=== PATIENT | female | born 1965 | race Caucasian/White ===

== ENCOUNTER → 2019-12-31 16:16 | Outpatient (CLI) | payer BC, SELFPAY ==
--- NOTE | ~2019-12-31 | XR_ITS ---
XR lumbar spine 2-3V 12/31/2019 16:49 Indication: Lumbar radiculopathy for 6 weeks Procedure: 3 views lumbar spine Comparison: No prior studies for comparison. Findings: Vertebral body heights are maintained. There is disc narrowing at L3-4, L4-5 and L5-S1. The re is moderate facet hypertrophy at these levels with grade 1 degenerative spondylolisthesis at L5-S1 . No fracture or traumatic malalignment. Pedicles intact. Sacral foramen are symmetric. Impression: 1: Moderate lumbar spondylosis primarily involving the facet joints. Reviewed, dictated and finalized at location A. Impression: 1: Moderate lumbar spondylosis primarily involving the facet joints.
== END ==
PROVIDERS: PCP Physician Assistant; Visit Provider Physician Assistant
DX: M47.26 Other spondylosis with radiculopathy, lumbar region (principal)
CPT/HCPCS: 72100

== ENCOUNTER → 2020-01-12 14:58 | Outpatient (CLI) | payer BC, SELFPAY ==
--- NOTE | ~2020-01-12 | XR_ITS ---
XR hip LT min 2V DATE: 01/12/2020 16:02 INDICATION: Pelvic and perineal pain, left hip pain following a fall 6-8 weeks ago TECHNIQUE: AP and lateral views of left hip COMPARISON: None FINDINGS: There is left hip joint space narrowing and spurring consistent with moderately severe oste oarthritis. No fracture, dislocation or bone destruction is evident. The pubic symphysis and sacral iliac joints are normally aligned. IMPRESSION: Moderately severe left hip osteoarthritis Reviewed, dictated and finalized at location B.
--- NOTE | ~2020-01-12 | MR_ITS ---
EXAMINATION: MR lumbar spine wo [facility] EXAM DATE: 01/12/2020 15:52 INDICATION: Low back pain, left hip pain, left leg weakness, limited range of motion. TECHNIQUE: Multi-sequential, multiplanar MR images of the lumbar spine were obtained without contrast . Sagittal T1, T2, T2 fat saturation images. Axial T2 weighted images. There is no prior study for comparison. FINDINGS: The conus medullaris terminates at the L1/2 level and has normal signal intensity and morph ology. There is mild lumbar disc desiccation. The vertebral bodies are aligned in the AP dimension. Vertebral body and disc heights are well-maintained. There are no suspicious marrow signal abnormali ties. Paraspinal soft tissue is unremarkable. Level by level evaluation: T12-L1: Disc does not extend beyond the endplate margin. Facet arthropathy: Mild. Neural foraminal stenosis: No stenosis. Central canal stenosis: No stenosis. L1-L2: Disc does not extend beyond the endplate margin. Facet arthropathy: Mild. Neural foraminal stenosis: No stenosis. Central canal stenosis: No stenosis. L2-L3: Disc does not extend beyond the endplate margin. Facet arthropathy: Mild. Neural foraminal stenosis: No stenosis. Central canal stenosis: No stenosis. L3-L4: There is a minimal diffuse disc bulge. Facet arthropathy: Mild to moderate. Neural foraminal stenosis: No stenosis. Central canal stenosis: No stenosis. L4-L5: There is a mild diffuse disc bulge. Facet arthropathy: Moderate. Neural foraminal stenosis: Mild to moderate bilateral. Central canal stenosis: Mild. L5-S1: There is a mild diffuse disc bulge. Facet arthropathy: Moderate. Neural foraminal stenosis: Mild to moderate left, mild right. Central canal stenosis: No stenosis. IMPRESSION: 1. Moderate lower lumbar arthropathy. Reviewed, dictated and finalized at location A.
== END ==
PROVIDERS: PCP Physician Assistant; Visit Provider Physician Assistant
DX: R10.2 Pelvic and perineal pain (principal); M47.896 Other spondylosis, lumbar region; M16.12 Unilateral primary osteoarthritis, left hip
CPT/HCPCS: 72148; 73502

== ENCOUNTER → 2020-05-12 18:06 | Outpatient (CLI) | payer BC, SELFPAY ==
--- NOTE | ~2020-05-12 | MM_ITS ---
EXAMINATION: MM scrn frieda implant BI w destiny HISTORY: Screening mammogram TECHNIQUE: Craniocaudal and mediolateral oblique 3-D tomosynthesis images with implant displacement a nd synthetic 2-D images were generated. Craniocaudal and mediolateral oblique views of the breasts wi thout implant displacement were obtained using full field digital mammography. CAD analysis was submi tted and interpreted. COMPARISON: 08/07/2015 bilateral implant digital screening mammogram 11/15/2012 diagnostic left mammogram and left breast ultrasound 11/01/2012 bilateral implant digital screening mammogram BREAST PARENCHYMAL COMPOSITION: There are scattered areas of fibroglandular density. FINDINGS: Status post bilateral augmentation mammoplasty. There are scattered bilateral benign calcif ications. There is no evidence of suspicious mass, calcification, or architectural distortion to sugg est malignancy in either breast. There has been no suspicious interval change. IMPRESSION: 1. No mammographic evidence of malignancy. 2. Recommend routine screening mammography in one year. BI-RADS Category 2: Benign finding(s). Reviewed, dictated and finalized at location B. 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
== END ==
PROVIDERS: PCP Physician Assistant; Visit Provider Physician Assistant
DX: Z12.31 Encounter for screening mammogram for malignant neoplasm of breast (principal)
CPT/HCPCS: 77063; 77067

== ENCOUNTER 2022-01-14 08:26 | Outpatient (CLI) | payer BC, SELFPAY ==
--- NOTE | ~2022-01-14 | MM_ITS ---
EXAMINATION: MM scrn frieda implant BI w destiny HISTORY: Screening mammogram TECHNIQUE: Craniocaudal and mediolateral oblique 3-D tomosynthesis images with implant displacement a nd synthetic 2-D images were generated. Craniocaudal and mediolateral oblique views of the breasts wi thout implant displacement were obtained using full field digital mammography. CAD analysis was submi tted and interpreted. COMPARISON: 05/12/2020, 08/07/2015 bilateral implant screening mammogram examinations BREAST PARENCHYMAL COMPOSITION: There are scattered areas of fibroglandular density. FINDINGS: Status post bilateral augmentation mammoplasty there is an asymmetric new approximately 3 x 6 mm opacity in the posterior inner right breast on CC projection; diagnostic right mammogram is rec ommended, with ultrasound if required. Otherwise there is no evidence of suspicious mass, calcification, or architectural distortion to sugg est malignancy in either breast. There has been no other suspicious interval change. IMPRESSION: 1. New asymmetric approximately 3 x 6 mm opacity in the posterior inner right breast on implant right CC view 2. Diagnostic right mammogram is recommended, with ultrasound if required BI-RADS Category 0: Incomplete: Needs additional imaging evaluation. Reviewed, dictated and finalized at location A. IMPRESSION: 1. New asymmetric approximately 3 x 6 mm opacity in the posterior inner right b reast on implant right CC view 2. Diagnostic right mammogram is recommended, with ultrasound if required BI-RADS Category 0: Incomplete: Needs additional imaging evaluation.
== END 2022-01-14 08:27 | disposition home or self-care (01) ==
LOC: ANHIMG 08:27
PROVIDERS: PCP Physician Assistant; Visit Provider Physician Assistant
DX: Z12.31 Encounter for screening mammogram for malignant neoplasm of breast (principal); R92.8 Other abnormal and inconclusive findings on diagnostic imaging of breast
CPT/HCPCS: 77063; 77067

== ENCOUNTER 2022-07-14 12:26 | Outpatient (CLI) | payer BC, SELFPAY ==
--- NOTE | ~2022-07-14 | MM_ITS ---
EXAMINATION: MM diagnostic mammo implant RT HISTORY: Right breast asymmetry on screening mammogram TECHNIQUE: Mediolateral spot compression 3-D tomosynthesis images with implant displacement of the ri ght breast were performed and synthetic 2-D images were generated. Craniocaudal with spot compressio n and mediolateral views of the right breast without implant displacement were obtained using full f ield digital mammography. CAD analysis was submitted and interpreted. COMPARISON: 01/14/2022, 05/12/2020, 08/07/2015 BREAST PARENCHYMAL COMPOSITION: There are scattered areas of fibroglandular density. FINDINGS: There is a return to baseline fibroglandular appearance with spot compression of the right breast in the area questioned on screening mammogram. IMPRESSION: 1. No mammographic evidence of malignancy. 2. Recommend routine screening mammography, due in six months. BI-RADS Category 1: Negative Reviewed, dictated and finalized at location A. 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
== END 2022-07-14 12:27 | disposition home or self-care (01) ==
LOC: ANHIMG 12:28
PROVIDERS: PCP Physician Assistant; Visit Provider Physician Assistant
DX: R92.8 Other abnormal and inconclusive findings on diagnostic imaging of breast (principal)
CPT/HCPCS: 77065

== ENCOUNTER → 2022-07-27 08:16 | Outpatient (CLI) | payer BC, SELFPAY ==
--- NOTE | ~2022-07-27 | MR_ITS ---
MRI of the right shoulder Technique: Axial proton-density fat-sat images, coronal proton density fat-sat and T2 fat-sat images, and sagittal T1-weighted and T2 fat-sat images were acquired. Clinical History: Pain Findings: There is moderate AC joint degenerative change. Humeral head is high riding, with narrowing of the acromiohumeral distance. Coracoclavicular, coracoacromial, coracohumeral ligaments appear int act. There are complete, full-thickness tears involving entirety of the supraspinatus and infraspinatus te ndons, which are retracted to the level of the glenohumeral joint. Fluid-filled gap measures approxim ately 3.7 x 4.0 cm in extent. There is probable minimal loss of bulk/fatty atrophy of the infraspinat us muscle belly. Subscapularis tendon is intact, with moderate to severe tendinosis. Tendon of long head of the biceps is intact. No labral tear identified. Inferior humeral ligament is intact. Small glenohumeral joint effusion is present. No muscle edema ev ident. No degenerative change of the glenohumeral joint is identified. There is a probable small gang lion cyst superior/superficial to the AC joint, measuring 1.2 x 0.4 x 0.7 cm in size. Impression: Complete, full-thickness tearing of the supraspinatus and infraspinatus tendons, with large fluid pedro led gap and tendon retraction, as detailed above. Probable mild loss of bulk of the infraspinatus mus lety belly. 1.2 x 0.4 x 0.7 cm ganglion cyst superior/superficial to the AC joint. Moderate AC joint degenerative change. High riding humeral head. Advanced subscapularis tendinosis. Reviewed, dictated and finalized at location . TECHNICIAN Impression: Complete, full-thickness tearing of the supraspinatus and infraspinatus tendons , with large fluid filled gap and tendon retraction, as detailed above. Probabl e mild loss of bulk of the infraspinatus muscle belly. 1.2 x 0.4 x 0.7 cm ganglion cyst superior/superficial to the AC joint. Moderate AC joint degenerative change. High riding humeral head. Advanced subscapularis tendinosis.
== END ==
PROVIDERS: PCP Physician Assistant; Visit Provider Orthopaedic Surgery Hand Surgery
DX: M75.121 Complete rotator cuff tear or rupture of right shoulder, not specified as traumatic (principal)
CPT/HCPCS: 73221

== ENCOUNTER 2023-12-17 12:46 | Emergency (ER) | payer BC, SELFPAY ==
[2023-12-17] VITALS (10 sets, daily range): BP systolic 117–137; BP diastolic 68–73; PULSE 57–95; RESP 13–22; TEMP 36.3–36.5; O2SAT 94–99
--- NOTE | ~2023-12-17 | XR_ITS ---
XR chest 1V portable Ordering provider: Yara Concepcion PA-C History: 58 years Female with . intermittent dyspnea . Comparison: None. FINDINGS: MEDIASTINUM: The cardiac silhouette is not enlarged. LUNGS: No infiltrates, effusions or pneumothorax. OTHER: No free air under the diaphragm. Degenerative changes of the spine. IMPRESSION: No acute cardiopulmonary pathology. Reviewed, dictated and finalized at location A.
--- NOTE | ~2023-12-17 | CT_ITS ---
CT brain wo con Ordering provider: Jennifer Dietz PA-C History: 58 years Female with . migraine, vertigo . Comparison: July 11, 2018 Technique: CT of the head without contrast. Radiation reduction technique utilized. DLP is 605.33 mGy. FINDINGS: BRAIN PARENCHYMA AND CSF SPACES: No midline shift, mass effect or hemorrhage. The brain parenchyma a nd CSF spaces are otherwise normal. Empty sella turcica. VISUALIZED PARANASAL SINUSES: Well aerated. MASTOIDS: Well aerated. BONES: The bones appear intact. SOFT TISSUES: Visualized nasopharynx is normal. Superficial soft tissues are normal. IMPRESSION: No acute intracranial findings. Reviewed, dictated and finalized at location A.
--- NOTE | 2023-12-17 15:20 | ED.DIZZY ---
HPI - Dizziness General Chief Complaint: Dizziness <AALIYAH Galicia Last Filed: 12/17/23 15:32> Stated Complaint: dizzy <AALIYAH Galicia Last Filed: 12/17/23 15:32> Time Seen by Provider: 12/17/23 15:20 <AALIYAH Galicia Last Filed: 12/17/23 15:32> Focused HPI: Patient is a 58 y/o female who presents to the ED with c/o dizziness. Patient reports she has been having constant vertigo since Sunday. Described as room spinning, worse with any movement, turning head, walking. Saw her PCP and was Rx'd meclizine, but denies improvement. Having difficulty ambulating due to the dizziness. Reports nausea, intermittent headache. Denies vomiting, vision changes, numbness or weakness of arm or leg, slurred speech, confusion. GENERAL: Appears older than stated age, thin, and in no acute distress. HEAD: Normocephalic, atraumatic. EYES: PERRL/EOMI, conjunctiva clear. Minimal nystagmus when looking to far right. ENT: TMs clear bilaterally CHEST: Clear to auscultation. ?No respiratory distress. HEART: Regular rate and rhythm.? NEURO: ?Alert and oriented x3. strength 5/5 in upper and lower extremities. Equal high value associate strength bilaterally. No pronator drift. No appreciable focal deficits. Cranial nerves 2 through 12 grossly intact. Patient screened in triage and initial orders placed.? ?Additional care and disposition to be based upon?diagnostic testing and treatment. <AALIYAH Galicia Last Filed: 12/17/23 15:32> Source: patient <AALIYAH Galicia Last Filed: 12/17/23 15:32> Mode of arrival: ambulatory <AALIYAH Galicia Last Filed: 12/17/23 15:32> Limitations: no limitations <AALIYAH Galicia Last Filed: 12/17/23 15:32> History of Present Illness HPI Narrative: 58-year-old female with no reported history of iron deficiency anemia, migraines and chronic tinnitus bilaterally presents to emergency department for vertigo for 6 days. Patient states prior to the onset of symptoms she had a couple of frequent migraines. States she took her Fioricet which did abort the migraines. She then woke up 6 days ago with reported disorientation when she moves her head quickly. States her symptoms progressed throughout the week and she saw her PCP 4 days ago. States she was prescribed meclizine which she took without improvement. This is why she presents today. She states she feels fine when she lays still and does not move her head, however she becomes very dizzy when she moves her head quickly for walks around. She reports difficulty ambulating and states she has to hold on to something while she walks due to the dizziness. She states she has chronic tinnitus bilaterally and was evaluated by ENT and 2016. States she was a is to wear hearing aids but they did not work so she is not continue wearing them. She denies recent head injury or trauma, current headache, vision changes, focal numbness or weakness, chest pain, nausea vomiting, diarrhea, abdominal pain. She does endorse some shortness of breath when doing increased activities which is new for her as well. Denies cough or congestion, fever , ear pain. <Yara Concepcion PA-C - Last Filed: 12/17/23 20:09> Related Data Home Medications: Home Medications Medication Instructions Recorded Confirmed bupropion HCl 300 mg 24 hr tablet, 300 mg PO HS 12/17/23 12/17/23 extended release clonazepam 1 mg tablet 1 mg PO HS 12/17/23 12/17/23 cyclobenzaprine 10 mg tablet 10 mg PO PRN 12/17/23 12/17/23 fluoxetine 40 mg capsule 40 mg PO HS 12/17/23 12/17/23 lemborexant 10 mg tablet (Dayvigo) 10 mg PO HS 12/17/23 12/17/23 levothyroxine 50 mcg tablet 50 mcg PO DAILY 12/17/23 12/17/23 meclizine 25 mg tablet 25 mg PO TID 12/17/23 12/17/23 <Jennifer Dietz PA-C - Last Filed: 12/17/23 15:32> Allergies/Adverse Reactions: Allergies Allergy/AdvReac Type Severity Reaction Status Reggie
--- NOTE | 2023-12-17 15:22 | ECG_ITS ---
Test Date: 2023-12-17 16:29:56 Measurements Intervals [place] Rate: 63 P: 27 PA: 146 QRS: 7 QRSD: 84 T: 26 QT: 429 QTc: 441 Interpretive Statements SINUS RHYTHM No previous ECG available for comparison Electronically Signed On 12-18-2023 13:24:55 CDT by Nawaf Coronado M.D.
[2023-12-17] MEDS: MECLIZINE HCL 25 MG TABLET PO (16:36)
[2023-12-17] MEDS: ONDANSETRON INJ 4 MG/2 ML VIAL IV PUSH (16:38)
[2023-12-17] MEDS: SODIUM CHLORIDE 0.9% IV 1,000 ML 999 ML IV CONT (16:38)
[2023-12-17] MEDS: diazePAM INJ (*CRX) 10 MG/2 ML SYRINGE IV PUSH (16:39)
[2023-12-17 16:45] LABS: Basophils Absolute Auto 0.1 K/mm3 (0.0-0.1); Basophils Percent Auto 0.7 % (0.2-1.2); Eosinophils Absolute Auto 0.5 K/mm3 (0-0.3); Eosinophils Percent Auto 6.6 % (0-4.4); Hematocrit 36.4 % (37.0-47.0); Hemoglobin 12.1 g/dL (12.0-15.0); Immature Granulocyte Absolute 0.02 K/mm3 (0.00-0.031); Immature Granulocyte Percent A 0.3 % (0-0.5); Lymphocytes Absolute Auto 2.41 K/mm3 (0.9-3.2); Lymphocytes Percent Auto 34.5 % (18.3-44.2); Mean Corpuscular HGB Conc 33.2 g/dl (32-36); Mean Corpuscular Hemoglobin 30.9 pg (26-34); Mean Corpuscular Volume 92.9 fl (80-100); Mean Platelet Volume 9.8 fl (7.4-10.4); Monocytes Absolute Auto 0.4 K/mm3 (0.1-0.6); Monocytes Percent Auto 5.6 % (2.6-8.5); Neutrophils Absolute Auto 3.7 K/mm3 (1.3-6.7); Neutrophils Percent Auto 52.3 % (45.5-73.1); Platelet Count Result 355 k/mm3 (150-375); Red Blood Count 3.92 M/mm3 (4.2-5.4); Red Cell Distribution Width 13.2 % (11.5-14.5)
[2023-12-17 16:58] LABS: Alanine Aminotransferase 9 U/L (6-35); Albumin Level 4.3 g/dL (3.5-5.1); Alkaline Phosphatase 95 U/L (38-126); Anion Gap 6 mmol/L (4-12); Aspartate Amino Transferase 20 U/L (14-36); Bilirubin,Total 0.4 mg/dL (0.2-1.3); Blood Urea Nitrogen 20 mg/dL (7-17); Calcium 8.8 mg/dL (8.4-10.2); Carbon Dioxide 29 mmol/L (22-30); Chloride 104 mmol/L (98-107); Estimated CRCL calculation 40 ml/min; Estimated Glomerular Filt Rate 57; Glucose 93 mg/dL (65-110); Magnesium 2.1 mg/dL (1.6-2.3); Potassium 3.2 mmol/L (3.4-5.0); Sodium 139 mmol/L (137-145)
[2023-12-17] MEDS: SCOPOLAMINE 1 MG PATCH 1 PATCH TRANSDERM (17:42)
[2023-12-17] MEDS: diazePAM INJ (*CRX) 10 MG/2 ML SYRINGE 2 MG IV PUSH (17:44)
[2023-12-17 18:02] LABS: Prothrombin Time 13.1 Seconds (11.1-14.7)
[2023-12-17 18:03] LABS: Partial Thromboplastin Time 28.2 Seconds (22.3-36.8)
[2023-12-17 18:04] LABS: NT Pro B Type Natriuretic Pept 218 pg/mL (19.9-100); Troponin I < 0.012 ng/mL (0.000-0.034)
[2023-12-17 19:02] LABS: D Dimer 0.31 ug/mL (<0.48)
--- NOTE | 2023-12-17 19:13 | PC.NURSE ---
Report given to Susanne CABRAL, all questions answered
[2023-12-17] MEDS: POTASSIUM CHLORIDE 20 MEQ PACKET (FOR LIQUID) 40 MEQ PO (20:06)
== END 2023-12-17 20:16 | disposition home or self-care (01) ==
PROVIDERS: Physician Assistant; Emergency Provider Physician Assistant; PCP Physician Assistant
DX: E87.6 Hypokalemia (principal); H81.13 Benign paroxysmal vertigo, bilateral; Z79.899 Other long term (current) drug therapy
CPT/HCPCS: 36415; 70450; 71045; 80053; 83735; 83880; 84484; 85025; 85380; 85610; 85730; 93005; 96361; 96374; 96375; 99284; A9270; J2405; J3360; J7030

== ENCOUNTER 2024-02-21 08:57 | Outpatient (CLI) | payer MEDICAID, SELFPAY ==
--- NOTE | ~2024-02-21 | MR_ITS ---
EXAMINATION: MR brain IAC wo/w con DATE: 02/21/2024 10:08 INDICATION: Dizziness and giddiness. TECHNIQUE: Magnetic resonance imaging (MRI) of the brain, brainstem, and internal auditory canals was performed without and with 12 mL MultiHance intravenous contrast. COMPARISON: Head CT 12/17/2023 FINDINGS: There is no intracranial hemorrhage, acute infarction, or abnormal intracranial mass lesion . There are scattered areas of nonspecific increased T2-weighted signal intensity in the cerebral whi te matter. The ventricles are normal in size. There is mild mucosal thickening in the ethmoid sinuses . The orbits are normal. The internal auditory canals, inner ears, tympanic cavities, and mastoid air cells are normal. IMPRESSION: 1. Mild nonspecific cerebral white matter disease, which likely represents chronic small vessel ische lidia disease. Reviewed, dictated and finalized at location A. IMPRESSION: 1. 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
== END 2024-02-21 08:58 | disposition home or self-care (01) ==
PROVIDERS: PCP Physician Assistant; Visit Provider Physician Assistant
DX: R90.82 White matter disease, unspecified (principal); R42 Dizziness and giddiness
CPT/HCPCS: 70553; A9577

== ENCOUNTER 2024-03-14 13:15 | Outpatient (RCR) | payer MEDICAID, SELFPAY ==
--- NOTE | 2024-03-04 16:23 | PTOPEVAL1 ---
Assessment and note entered by Sue Adan, PT Evaluation Information Assessment Status Evaluation Diagnosis dizziness and giddiness ICD-10 Condition Codes (PT) Difficulty Walking R26.2,Dizziness & Giddiness R42 Onset November 2023 Subjective Information Pt reports this started in November this year. went to sleep, then woke up and didn't feel right. Pt states she went to work, thought she could shake it off . Throughout the day it didn't go away, the next day was worse, the next day Wed was worse so called into work Sun-Sun which she saw doc on Sunday. Was provided Meclizine which didn't help. Was sent to ER where she got CT, MRI, chest x-ray and r/o stroke. Reports some days are worse than others. Feels like a bobble head or got out of a boat and is unsteady. States she walks slowly but if she walks faster she looks like a drunk . Has a small apartment with hand rails and 54 and older . hasn't fallen yet but if didn't have rails she would have fallen. doesn't drive unless she has too, doesn't like to be in the car even when her friends are driving, because it makes the symptoms worse. If she puts her head on the headrest is better. Denies spinning but that everything feels wobbly. States she lost her job because of this. 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 Pt reports she could work with the dizziness so had to be replaced. Feels like when is out and about she feels better, but is very scary to get out and about and it takes her a long time. Reported Pain Level Pain Score 0: Self Report Assessment PT Clinical Summary Pt presents with c/o dizziness that began in November of this year. She reports when meclizine didn't help, she went to the ER per instruction. All imaging including CT and MRI of the brain were negative for intracranial processes acute or otherwise. She also had a hearing test and saw an ENT which she states she was told it wasn't her inner ear it's in your brain . While patient does not demo nystag
--- NOTE | 2024-03-04 16:23 | OPREHPOC ---
Outpatient Therapy Plan of Care This is a Multidisciplinary Plan of Care that may contain components documented by all disciplines (PT, OT, and ST.) PT Goal 1 Goal / Goal Update Pt will be independent in HEP Target Visit 5 PT Problem 2 PT Problem #2 Impaired Range of Motion PT Goal 1 Goal / Goal Update Pt will demo lateral cervical flexion bilat of 50% or greater Target Visit 10 PT Problem 3 PT Problem #3 Impaired Balance PT Goal 1 Goal / Goal Update Pt will rate herself at 50/100 on DHI or less Target Visit 10 PT Problem 4 PT Problem #4 Impaired Balance PT Goal 1 Goal / Goal Update Pt will demo improved eyes closed tandem stance by 5 seconds both positions Target Visit 5 PT Goal 2 Goal / Goal Update Pt will demo improved eyes closed tandem stance by 5 seconds both positions Target Visit 10
--- NOTE | 2024-03-12 16:16 | PCPTNOTE ---
Patient called & cancelled scheduled appointment this date due to feeling too wobbly
== END 2024-03-21 16:08 | disposition other institution (70) ==
LOC: ANHHIPT 13:15
PROVIDERS: PCP Physician Assistant; Visit Provider Physician Assistant
DX: R42 Dizziness and giddiness (principal)
CPT/HCPCS: 97014; 97110; 97140; 97162; 97530; G0283

== ENCOUNTER 2025-05-12 16:34 | Outpatient (CLI) | payer MEDICAID, SELFPAY ==
--- NOTE | ~2025-05-12 | XR_ITS ---
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 Findings: No acute fracture or malalignment. No significant degenerative changes. Soft tissues unremarkable. Impression: No acute fracture or malalignment. Reviewed, dictated and finalized at location P. STICAL MATERIAL WORKER Impression: No acute fracture or malalignment.
--- OUTSIDE RECORDS SUMMARY | 2025-05-12 17:39 | XMS_ITS | Encounter Summary ---
Author Organization [facility] Healthcare Address [address] [place], [place] [id number] Care Team Providers Care Vacuum Drier Tender Name Role Phone Radha Pascual Primary Care Pr ovider Reason for Referral * Diagnostic Imaging (Routine) - Closed Specialty Diagnoses / Procedures Referred By Contac t Referred To Contact Diagnoses Screening mammogram, encounter for Procedures Screening Mammogram Bilateral W Pal W Implants Screening Mammogram, Self Referral ID Status Reason Start Date Expiration Date Visits Re quested Visits Authorized [id number] Closed 05/05/2025 06/04/2026 1 1 TER WIRE MESH * Diagnostic Imaging (Routine) - Closed Specialty Diagnoses / Procedures Referred By Contac t Referred To Contact Diagnoses Screening mammogram, encounter for Procedures Screening Mammogram Bilateral W Pal W Implants Screening Mammogram, Self Referral ID Status Reason Start Date Expiration Date Visits Re quested Visits Authorized [id number] Closed 05/05/2025 06/04/2026 1 1 TER WIRE MESH Reason for Visit * Diagnostic Imaging (Routine) - Closed Specialty Diagnoses / Procedures Referred By Contac t Referred To Contact Diagnoses Screening mammogram, encounter for Procedures Screening Mammogram Bilateral W Pal W Implants Screening Mammogram, Self Referral ID Status Reason Start Date Expiration Date Visits Re quested Visits Authorized [id number] Closed 05/05/2025 06/04/2026 1 1 Encounter Details Date Type Department Care Team (Latest Contact Info) Description 05/12/2025 5:39 PM KNITTER WIRE MESH - 05/12/2025 11:59 PM KNITTER WIRE MESH Hospital Encounter [id number] [place] [address] Screening mammogram, encounter for Discharge Disposition: Discharge to home or self care Social History Tobacco Use Types Packs/Day Years Used Date Smoking Tobacco: Never Assessed Comments No Sex and Gender Information Value Date Recorded Sex Assigned at Not on file Legal Sex Female 11:12 AM 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 Gender Identity Not on file Sexual Orientation Not on file documented as of this encounter Last Filed Vital Signs Vital Sign Reading Time Taken Comments Blood Pressure - - Pulse - - Temperature - - Respiratory Rate - - Oxygen Saturation - - Inhaled Oxygen Concentration - - Weight 64 kg (141 lb) 05/12/2025 6:17 PM KNITTER WIRE MESH Height 152.4 cm (5') 05/12/2025 6:17 PM KNITTER WIRE MESH Body Mass Index 27.54 05/12/2025 6:17 PM KNITTER WIRE MESH documented in this encounter Discharge Disposition Disposition Code Departure Means Destination Discharge to home or self care documented in this encounter Plan of Treatment Pending Results Name Type Priority Associated Diagnoses Date /Time Screening Mammogram Bilateral W Pal W Implants Imaging Schedule Routine, Read Routine (OP Routine) Screening mammogram, encounter for 05/12/2025 6:17 PM KNITTER WIRE MESH Scheduled Orders Name Type Priority Associated Diagnoses Orde r Schedule Screening Mammogram Bilateral W Pal W Implants Imaging Schedule Routine, Read Routine (OP Routine) Screening mammogram, encounter for Expected: 05/05/2025, Expires: 07/05/2026 Screening Mammogram Bilateral W Pal W Implants Imaging Schedule Routine, Read Routine (OP Routine) Screening mammogram, encounter for Once for 1 Occurrences starting 05/12/2025 until 05/12/2025 documented as of this encounter Visit Diagnoses Diagnosis Screening mammogram, encounter for documented in this encounter Care Teams Vacuum Drier Tender Relationship Specialty Start Date End Date Radha Pascual PA [address] [place] [id number] PCP - General Physician Graphic Specialist 05/05/25 documented as of this encounter
--- OUTSIDE RECORDS SUMMARY | 2025-05-13 03:51 | XMS_ITS | Encounter Summary ---
Author Organization [facility] Address [address] [place] [address] Care Team Providers Care Fire Alarm Inspector Name Role Phone Unavailable Primary Care Provider Unavailabl e Encounter Details Date Type Department Care Team (Late st Contact Info) Description 08/27/2006 Emergency [facility] Jae Hodge MD [address] [place] [address] [place] [address] Er, Authorized P NO ADDRESS ON FILE Closed Dislocation of Patella (Primary Dx) Social History Tobacco Use Types Packs/Day Years Used Date Smoking Tobacco: Never Assessed Comments Unknown Sex and Gender Information Value Date Recorded Sex Assigned at Not on file 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
--- OUTSIDE RECORDS SUMMARY | 2025-05-13 03:51 | XMS_ITS | Clinical Summary ---
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 Pulse 71 07/25/2012 6: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 Temperature - - Respiratory Rate - - Oxygen Saturation - - Inhaled Oxygen Concentration - - Weight 56.2 kg (124 lb) 07/25/2012 6: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 Height - - Body Mass Index - - Plan of Treatment Health Maintenance Due Date Last Done Comments Cervical Cancer Screening Pa p Smear (Age 30 to 64) Every 3 Years 1964 Colorectal Cancer Screening Colonoscopy (10 Years) 1964 Annual Physical 02/28/1967 Hepatitis C 02/28/1982 DTaP, Tdap and Td Vaccines ( 1 - Tdap) 02/28/1983 Cervical Cancer Screening Pa p with HPV Testing (Age 30 to 64) Every 5 Years 02/28/1994 Cervical Cancer Screening with HPV 02/28/1994 Mammogram Screening 2004 Pneumococcal Vaccine: 50+ Ye ars (1 of 1 - PCV) 02/28/2014 Zoster Vaccines (1 of 2) 02/28/2014 PHQ-2 (Physician [place]) 06/25/2024 COVID-19 Vaccine ( - 2024-2 6 season) 2025 Influenza Adult (#1) 2025 RSV Immunization or 60+ Years (1 - 1-dose 75+ series) 02/28/2039 Hepatitis A Vaccines Aged Out No long er eligible based on patient's age to complete this topic Meningococcal B Vaccine Aged Out No l onger eligible based on patient's age to complete this topic Meningococcal Vaccine Aged Out No andre albin eligible based on patient's age to complete this topic RSV Immunizations Under 20 Months Aged Out No longer eligible based on patient's age to complete this topic Insurance MEDICAID
--- OUTSIDE RECORDS SUMMARY | 2025-05-13 03:51 | XMS_ITS | Clinical Summary ---
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 - 05/12/2025 11:59 PM DAIRY PROCESSING SUPERVISOR Hospital Encounter [address] [address] Screening mammogram, encounter for Discharge Disposition: Discharge to home or self care from Last 3 Months Surgical History Surgery Date Site/Laterality Comments HYSTERECTOMY age 53 Family History Medical History Relation Name Comments Breast cancer Sister Relation Name Status Comments Sister Social History Tobacco Use Types Packs/Day Years Used Date Smoking Tobacco: Never Assessed Comments No Sex and Gender Information Value Date Recorded Sex Assigned at Not on file Legal Sex Female 11:12 AM DAIRY PROCESSING SUPERVISOR Gender Identity Not on file Sexual Orientation Not on file Obstetrics History Para Term AB IAB SAB Ectopic Multiple Livin g Live Births 1 0 Date Outcome GA Total Labor Labor/2nd/3rd Weight Sex Type Anes PTL Kathleen A1 A5 Name Clin Last Filed Vital Signs Vital Sign Reading Time Taken Comments Blood Pressure - - Pulse - - Temperature - - Respiratory Rate - - Oxygen Saturation - - Inhaled Oxygen Concentration - - Weight 64 kg (141 lb) 05/12/2025 6:17 PM DAIRY PROCESSING SUPERVISOR Height 152.4 cm (5') 05/12/2025 6:17 PM DAIRY PROCESSING SUPERVISOR Body Mass Index 27.54 05/12/2025 6:17 PM DAIRY PROCESSING SUPERVISOR Plan of Treatment Health Maintenance Due Date Last Done Comments Breast Cancer Screening-Mammogram 1965 Colon Cancer Screening-Colonoscopy 1964 Depression Screening 1964 Hepatitis C Screening 1964 DTaP/Tdap/Td Vaccine (1 - Tdap) 02/28/1975 Hepatitis B Screening 02/28/1982 Regular Well Visit/Exam 18-64 02/28/1982 Zoster Vaccine (1 of 2) 02/28/2014 Covid-19 Vaccine (2024-2 6 season) 2025 05/29/2021, 09/18/2020, 08/26/2020 Influenza Vaccine (#1) 2025 Pneumococcal vaccine <65 Aged Out No longer eligible based on patient's age to complete this topic Insurance [facility] Care Teams Receiving Weigher Relationship Specialty Start Date End Date Radha Pascual PA [address] [place] [address] PCP - General Physician Croze Cutter Helper 05/05/25
--- OUTSIDE RECORDS SUMMARY | 2025-05-13 03:51 | XMS_ITS | Clinical Summary ---
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 Gender Identity Not on file Sexual Orientation Not on file Plan of Treatment Health Maintenance Due Date Last Done Comments DTAP/TDAP/TD VACCINES (1 - Tdap) 02/28/1983 HPV/Cotest (21-29) 02/28/1985 CERVICAL CANCER SCREENING 02/28/1994 HPV/Cotest (30-65) 02/28/1994 PAP SMEAR 02/28/1994 BREAST CANCER SCREENING 2004 COLORECTAL SCREENING 02/28/2009 Colorectal Cancer Screening 02/28/2009 FIT-DNA Q 3 years 02/28/2009 FIT/FOBT Q 1 year 02/28/2009 Flex Sig/CT Colonography Q 5 years 02/28/2009 ZOSTER VACCINE (1 of 2) 02/28/2014 INFLUENZA VACCINE (#1) 2025 RSV VACCINE (60+ or ) (1 - 1-dose 75+ series) 02/28/2039
== END 2025-05-12 16:35 | disposition home or self-care (01) ==
PROVIDERS: PCP Physician Assistant; Visit Provider Physician Assistant
DX: M25.522 Pain in left elbow (principal)
CPT/HCPCS: 73070